=== PATIENT | male | born 1940 | race Caucasian/White ===

== ENCOUNTER 2017-03-28 23:47 | Inpatient (IN) | payer MEDICARE, BC ==
[~2017-03-28] VITALS: Ht 172.7 cm; Wt 72.6 kg
[2017-03-29] MEDS ORDERED: TEMA15CA (00:29)
[2017-03-29] MEDS ORDERED: DONE5TAB34 (00:29)
[2017-03-29] MEDS ORDERED: LORA1TAB (00:29)
[2017-03-29] MEDS ORDERED: LISI10TA5 (00:29)
[2017-03-29] MEDS ORDERED: VORT10TA (00:29)
[2017-03-29] MEDS ORDERED: OLAN10TA3 (00:29)
[2017-03-29] MEDS ORDERED: LAMO25TA (00:29)
[2017-03-29] MEDS ORDERED: SERT50TA12 (00:29)
[2017-03-29] MEDS ORDERED: RISP1TAB27 (00:29)
[2017-03-29] MEDS ORDERED: QUETIAPINE (00:29)
[2017-03-29] MEDS ORDERED: OMEP40CA37 (00:29)
[2017-03-29] MEDS ORDERED: ATOR40TA (00:29)
[2017-03-29] MEDS ORDERED: ACETAMINOPHEN 325 MG TABLET PO PRN (01:00)
[2017-03-29] MEDS ORDERED: MAG HYDROX/AL HYDROX/SIMETH 30 ML UDC PO PRN (01:00)
[2017-03-29 01:14] VITALS: BP 138/79
--- NOTE | 2017-03-29 01:43 | NUR ---
ADMISSION NOTES ADMITTED THIS 76Y/O MALE PATIENT DIRECT ADMIT FROM [facility] . PT IS ON 5150 HOLD FOR GD , PER HOLD PT. DEPREESED HPOELESS STATUS MY IS MOVING ON SHE CAN NO LONGER TAKE CARE OF ME , SI, AND HAS NOT BEEN EATING . UPON FACE TO FACE ASSESSMENT PATIENT IS A&O X-2,3, DEPESSED WITH FLAT AFFECT, DENIES SI AT THIS TIME, PT. IS POOR HISTORIAN, POOR INSIGHT ,POOR JUDGEMENT ,V/S WNL, NO ACUTE RESPIRATORY , HX OF DEPRESSION BIPOLAR DISORDER ,HTN, ALCOHOL ABUSE,GERD, HYPERLIPIDEMIA PA, SLEEP DIFFIULITIES, AWARE AND NOTIFIED OF THE ADMISSION, PT. REFUSED TO SIGNS ON ADMISSION PAPERS, SKIN ASSESSMENT DONE , SKIN INTACT . ENCOURAGED PT. VERBALIZED ANY FEELING CONCERN TO STAFF, ORIENT TO UNIT POLICY, WILL CONTINUE TO MONITOR FOR Q15 SAFETY AND BEHAVIOR.
[2017-03-29 08:00] VITALS: BP 137/75
[2017-03-29] MEDS: DONEPEZIL 5 MG TABLET PO SCH (08:42)
[2017-03-29] MEDS: ATORVASTATIN 40 MG TABLET PO SCH (08:42)
[2017-03-29] MEDS: LISINOPRIL (10MG) 10 MG TABLET PO SCH (08:43)
[2017-03-29 16:00] VITALS: BP 160/80
[2017-03-29 20:08] VITALS: BP 134/75
[2017-03-29] MEDS: OLANZAPINE 2.5 MG TABLET PO SCH (20:45)
[2017-03-30 07:04] LABS: ALANINE AMINOTRANSFERASE 34 U/L (12-78); ALBUMIN 3.7 g/dL (3.4-5.0); ALKALINE PHOSPHATASE 70 U/L (46-116); ASPARTATE AMINOTRANSFERASE 17 U/L (15-37); BILIRUBIN,TOTAL 0.7 mg/dL (0.2-1.0); CALCIUM, SERUM 9.5 mg/dL (8.5-10.1); CARBON DIOXIDE 26 mmol/L (21-32); CHLORIDE 104 mmol/L (98-107); CREATININE 0.9 mg/dL (0.6-1.3); GLUCOSE 81 mg/dL (74-106); POTASSIUM 4.2 mmol/L (3.5-5.1); SODIUM SERUM 138 mmol/L (136-145); TOTAL PROTEIN, SERUM 7.2 g/dL (6.4-8.2); UREA NITROGEN, BLOOD 20 mg/dL (7-18)
[2017-03-30 07:06] LABS: CHOLESTEROL 136 mg/dL (<200); HDL CHOLESTEROL 56 mg/dL (40-60); LDL 63 mg/dL (0-99); TRIGLYCERIDES 70 mg/dL (30-150)
[2017-03-30 07:14] LABS: BASOPHILS # (AUTO) 0.1 /CMM (0.0-0.2); BASOPHILS % (AUTO) 0.8 % (0.0-2.0); EOSINOPHILS # (AUTO) 0.1 /CMM (0.0-0.7); EOSINOPHILS % (AUTO) 1.1 % (0.0-6.0); HEMATOCRIT 43 % (39-51); HEMOGLOBIN 14.7 g/dL (13.5-17.5); LYMPHOCYTES # (AUTO) 3.1 /CMM (0.8-4.8); MEAN CORPUSCULAR HEMOGLOBIN 29 PG (26.0-33.0); MEAN CORPUSCULAR HGB CONC 34 g/dl (31.0-36.0); MEAN CORPUSCULAR VOLUME 85 fL (80-96); MONOCYTES # (AUTO) 0.7 /CMM (0.1-1.30); NEUTROPHILS # (AUTO) 7.6 /CMM (1.8-8.9); NEUTROPHILS % (AUTO) 65.1 % (43.0-81.0); PLATELET COUNT (AUTO) 297 /CMM (150-450); RDW COEFFICIENT OF VARIATION 12.9 (11.5-15.0); RED BLOOD CELL COUNT(AUTO) 5.04 MIL/uL (4.5-6.0); WHITE BLOOD COUNT (AUTO) 11.6 K/uL (4.3-11.0)
[2017-03-30 08:00] VITALS: BP 112/65
[2017-03-30] MEDS: OLANZAPINE 2.5 MG TABLET PO SCH ×2 (08:10→13:10)
[2017-03-30] MEDS: ATORVASTATIN 40 MG TABLET PO SCH (08:10)
[2017-03-30] MEDS: DONEPEZIL 5 MG TABLET PO SCH (08:10)
[2017-03-30] MEDS: LISINOPRIL (10MG) 10 MG TABLET PO SCH (08:12)
[2017-03-30 11:14] LABS: EOSINOPHILS % (MANUAL) 1 % (0-4); LYMPHOCYTES % (MANUAL) 31 % (16-48); MONOCYTES % (MANUAL) 6 % (0-11.0); NEUTROPHILS % (MANUAL) 62 (42-76)
[2017-03-30] MEDS: VENLAFAXINE XR 75 MG CAP.SR.24H PO SCH (13:10)
--- NOTE | 2017-03-30 14:46 | NUR ---
NME-MD-ASSBU: NOTIFIED DR. VICENTE ABOUT PT CALLING AND VERBALIZED SUICIDAL IDEATIONS. PLACED PT ON 1: SITTER. CHANGED ZYPREXA 2.5 MG TID TO ZYPREXA 2.5 MG PO BID, ZYPREXA 5 MG PO HS.
[2017-03-30 16:00] VITALS: BP 114/71
[2017-03-30] MEDS: BOOST PLUS FOOD-VANILLA 237 ML BOX PO SCH (16:40)
[2017-03-30 20:38] VITALS: BP 92/54
[2017-03-30] MEDS ORDERED: OLANZAPINE 5 MG TABLET PO SCH (22:00)
--- NOTE | 2017-03-30 22:00 | NUR ---
GPS RN NOTES: PATIENT BLOOD PRESSURE BP=87/53 P=68, NO SOB, NO ACUTE DISTRESS, BREATHING EVEN AND UNLABORED, DENIES PAIN AND DISCOMFORT. ZYPREXA HELD D/T LOW BP. ENCOURAGED THE PATIENT TO DRINK WATER, BOOST AND EAT SOME SNACKS. PATIENT AGREED AND WILL RECHECK AFTER 30 MINS. WILL CONTINUE TO MONITOR
--- NOTE | 2017-03-30 22:30 | NUR ---
GPS RN NOTE: RECHECKED BP=96/55 P=75 R=18 T=97.8, NO SOB, NO ACUTE DISTRESS, BREATHING EVEN AND UNLABORED, DENIES PAIN AND DISCOMFORT. WILL CONTINUE TO MONITOR
--- NOTE | 2017-03-30 23:20 | NUR ---
GPS RN NOTE: B/P = 105/58 P = 74 R = 20. NO SOB, NO ACUTE DISTRESS, BREATHING EVEN AND UNLABORED, DENIES PAIN AND DISCOMFORT, WILL CONTINUE TO MONITOR [id number] FOR SAFETY
--- NOTE | 2017-03-31 01:40 | NUR ---
GPS RN NOTE: PATIENT NB=055/81 P=82 R=18. NO SOB, NO ACUTE DISTRESS, BREATHING EVEN AND UNLABORED, DENIES PAIN AND DISCOMFORT. PATIENT STABLE. REFUSED SLEEPING PILLS. WILL CONTINUE TO MONITOR.
[2017-03-31] MEDS: MAGNESIUM HYDROXIDE 30 ML UDC PO PRN (01:44)
[2017-03-31 08:00] VITALS: BP 122/67
[2017-03-31] MEDS: BOOST PLUS FOOD-VANILLA 237 ML BOX PO SCH ×2 (10:08→17:14)
[2017-03-31] MEDS: LISINOPRIL (10MG) 10 MG TABLET PO SCH (10:09)
[2017-03-31] MEDS: VENLAFAXINE XR 75 MG CAP.SR.24H PO SCH (10:10)
[2017-03-31] MEDS: ATORVASTATIN 40 MG TABLET PO SCH (10:11)
[2017-03-31] MEDS: clonazePAM 0.5 MG TABLET PO PRN (10:11)
[2017-03-31] MEDS: OLANZAPINE 2.5 MG TABLET PO SCH ×3 (10:11→22:00)
--- NOTE | 2017-03-31 10:11 | NUR ---
RN NOTES ADMINISTERED KLONOPIN 0.5 MG PO PRN FOR ANXIETY, PER PATIENT REQUEST, V/S STABLE BP -122/67, P-73, CONTINUED MONITORING.
[2017-03-31] MEDS: DONEPEZIL 5 MG TABLET PO SCH (10:12)
[2017-03-31] MEDS ORDERED: LITHIUM CARBONATE 150 MG CAPSULE PO SCH (11:30)
--- NOTE | 2017-03-31 16:55 | NUR ---
Initial Discharge Plan: Pt resides at home, [address] [place] [address] with his , Elodia and step son, Jak. Pts # . Pt would like to return home upon discharge. FILIPE spoke to pts daughter Ivan Pike who expressed concerns about her father's mental health condition. Pts daughter would like to be involved in pts discharge planning. FILIPE will follow up with pt and family. SW will help formulate a safe and proper discharge. Addendum: 04/09/17 at 1153 by RUTH DENT Please note that Ivan's phone number is [phone].
--- NOTE | 2017-03-31 19:30 | NUR ---
RN NOTE; RECEIVED PT IN BED LAYING DOWN COMFORTABLY. DEPRESSED. BREATHING EVENLY. ON 1:1 OBSERVATION FOR SAFETY AND FALL RISK. NO BEHAVIORAL ISSUES NOTED AT THIS TIME. WILL CONT TO MONITOR .
[2017-03-31 20:00] VITALS: BP 85/48
[2017-03-31 20:36] VITALS: BP 85/48
--- NOTE | 2017-03-31 21:01 | NUR ---
SPOKE TO DR. SAMUELS AND RELAYED THE LOW BP OF 85/50 TO HIM. W/ A NEW ORDER TO HOLD THE BP MEDICATION . FLUID WAS OFFERED AND ENCOURAGED . LEGS ELEVATED. WILL CONT TO MONITOR.
--- NOTE | 2017-04-01 06:34 | NUR ---
RN NOTE; PT IN HIS ROOM SLEEPING. NO ACUTE EVENT DURING THE THE NIGHT. NO COMBATIVE BEHAVIOR. NO VERBALIZATION OF SUICIDE OD HOMICIDE. ON ONGOING OBSERVATION AND 1:1 SITTER FOR SAFETY AND FALL RISK. NEEDS ATTENDED . WILL CONT TO MONITOR AND WILL ENDORSE TO AM SHIFT FOR VIOLETA .
[2017-04-01] MEDS: DONEPEZIL 5 MG TABLET PO SCH (08:11)
[2017-04-01] MEDS: OLANZAPINE 2.5 MG TABLET PO SCH ×3 (08:11→21:42)
[2017-04-01] MEDS: ATORVASTATIN 40 MG TABLET PO SCH (08:11)
[2017-04-01] MEDS: VENLAFAXINE XR 75 MG CAP.SR.24H PO SCH (08:11)
[2017-04-01] MEDS: BOOST PLUS FOOD-VANILLA 237 ML BOX PO SCH ×2 (08:43→17:12)
[2017-04-01 08:52] VITALS: BP 104/62
[2017-04-01 20:00] VITALS: BP 101/60
--- NOTE | 2017-04-02 07:03 | NUR ---
GPS RN NOTES REMAINED PT. WITH 1:1 SITTER. PT. IS CALM AND COOPERATIVE AND FOLLOWS DIRECTIONS. NO ACUTE DISTRESS NOTED , WILL ENDORSE TO NEXT SHIFT FOR CONTINUITY OF CARE.
[2017-04-02] MEDS: BOOST PLUS FOOD-VANILLA 237 ML BOX PO SCH ×2 (08:15→17:33)
[2017-04-02] MEDS: OLANZAPINE 2.5 MG TABLET PO SCH ×4 (08:16→22:13)
[2017-04-02] MEDS: DONEPEZIL 5 MG TABLET PO SCH (08:16)
[2017-04-02] MEDS: VENLAFAXINE XR 75 MG CAP.SR.24H PO SCH (08:16)
[2017-04-02] MEDS: ATORVASTATIN 40 MG TABLET PO SCH (08:16)
[2017-04-02 08:23] VITALS: BP 115/65
[2017-04-02] MEDS: clonazePAM 0.5 MG TABLET PO PRN (16:11)
[2017-04-02 16:14] VITALS: BP 104/74
[2017-04-02 20:00] VITALS: BP 113/64
[2017-04-02] MEDS: TEMAZEPAM 7.5 MG CAPSULE PO PRN ×2 (22:11→23:32)
--- NOTE | 2017-04-02 22:40 | NUR ---
GPS RN NOTES: PATIENT REFUSED MEDICATIONS ZYPREXA 7.5MG AND RESTORIL 7.5MG. PATIENT SPIT OUT MEDICATIONS TO THE FLOOR. EXPLAINED RISKS AND BENEFITS. PATIENT STRONGLY REFUSED. PATIENT'S RIGHT RESPECTED. WILL CONTINUE TO MONITOR FOR SAFETY AND BEHAVIOR [id number].
[2017-04-03 08:28] VITALS: BP 129/57
[2017-04-03] MEDS: BOOST PLUS FOOD-VANILLA 237 ML BOX PO SCH ×2 (08:35→16:50)
[2017-04-03] MEDS: OLANZAPINE 2.5 MG TABLET PO SCH ×3 (09:04→21:24)
[2017-04-03] MEDS: ATORVASTATIN 40 MG TABLET PO SCH (09:04)
[2017-04-03] MEDS: VENLAFAXINE XR 75 MG CAP.SR.24H PO SCH (09:04)
[2017-04-03] MEDS: DONEPEZIL 5 MG TABLET PO SCH (09:04)
[2017-04-03 16:28] VITALS: BP 107/62
[2017-04-03] MEDS ORDERED: VENLAFAXINE XR 75 MG CAP.SR.24H PO ONE (17:30)
--- NOTE | 2017-04-03 17:54 | NUR ---
GPS/RN-NOTES PATIENT AWAKE,ALERT LAYING IN HIS BED CALM AND COOPERATIVE AT THIS TIME,NO ACUTE DISTRESS NOTED. ENDORSED TO INCOMING NURSE FOR CONTINUITY OF CARE.
[2017-04-03 20:00] VITALS: BP 104/59
[2017-04-03] MEDS: TEMAZEPAM 7.5 MG CAPSULE PO PRN (21:24)
[2017-04-04 08:00] VITALS: BP 130/70
[2017-04-04] MEDS: OLANZAPINE 2.5 MG TABLET PO SCH ×3 (08:15→21:28)
[2017-04-04] MEDS: DONEPEZIL 5 MG TABLET PO SCH (08:16)
[2017-04-04] MEDS: ATORVASTATIN 40 MG TABLET PO SCH (08:16)
[2017-04-04] MEDS: BOOST PLUS FOOD-VANILLA 237 ML BOX PO SCH ×2 (08:18→16:44)
[2017-04-04] MEDS ORDERED: VENLAFAXINE XR 75 MG CAP.SR.24H PO SCH (09:00)
[2017-04-04 15:43] VITALS: BP 102/64
[2017-04-04 20:22] VITALS: BP 113/50
[2017-04-05] MEDS: BOOST PLUS FOOD-VANILLA 237 ML BOX PO SCH ×2 (08:00→17:17)
[2017-04-05 08:21] VITALS: BP 113/63
[2017-04-05] MEDS: OLANZAPINE 2.5 MG TABLET PO SCH ×3 (09:00→21:57)
[2017-04-05] MEDS: VENLAFAXINE XR 75 MG CAP.SR.24H PO SCH (09:00)
[2017-04-05] MEDS: ATORVASTATIN 40 MG TABLET PO SCH (09:00)
[2017-04-05] MEDS: DONEPEZIL 5 MG TABLET PO SCH (09:00)
--- NOTE | 2017-04-05 09:00 | NUR ---
GPS/RN patient refused a.m. medication x 3, explained risks and benefits, will continue to encourage to comply with M.D. regimen.
--- NOTE | 2017-04-05 10:41 | NUR ---
FILIPE faxed inquiry to [facility] ; and [facility], [address] [place] [address], [place] [address]; and . FILIPE received a call back from [facility] stating they do not cover medicare/medical. [facility] was a recommended by pts daughter Ivan, who stated that her father had received services from the facility in the past. FILIPE also spoke to pts , Roseanne who would like for her to discharge to a Rehab facility and or Nursing, "So he can get help that I can't give him." FILIPE will continue to follow up to ensure pt is properly discharged.
[2017-04-05 16:00] VITALS: BP 118/66
[2017-04-05 20:00] VITALS: BP 122/60
--- NOTE | 2017-04-06 06:56 | NUR ---
GPS RN: PATIENT IN THE ROOM, AWAKE, IT WAS REPORTED BY DEMOGRAPHER THAT PATIENT HASN'T URINATED FOR THE WHOLE 12 HOURS. BEATER HEAD WENT TO PATIENT'S ROOM WITH CHARGE NURSE AND SPOKE TO PATIENT. PATIENT LOOKS SAD AND DEPRESSED. ENCOURAGED TO DRINK WATER AND BOOST BUT PATIENT REFUSED. TOLD PATIENT OF THE CONSEQUENCES BUT PATIENT KEPT ON REFUSING. WILL RELAY PATIENT'S BEHAVIOR TO DAY SHIFT NURSE.
[2017-04-06] MEDS: VENLAFAXINE XR 75 MG CAP.SR.24H PO SCH (08:06)
[2017-04-06] MEDS: DONEPEZIL 5 MG TABLET PO SCH (08:08)
[2017-04-06] MEDS: ATORVASTATIN 40 MG TABLET PO SCH (08:09)
[2017-04-06] MEDS: OLANZAPINE 2.5 MG TABLET PO SCH ×3 (08:10→21:13)
[2017-04-06 08:22] VITALS: BP 115/61
[2017-04-06] MEDS: BOOST PLUS FOOD-VANILLA 237 ML BOX PO SCH ×2 (08:54→16:19)
--- NOTE | 2017-04-06 11:01 | NUR ---
SW spoke to pts daughterIvan who provided SW with additional facilities to look into in the [place] area (i.e. [place] and [facility]). Sw informed pts daughter that [facility] was unable to accept her father's insurance coverage. Pts daughter stated that she and other family can pay for the services. SW advised pts daughter to contact facilities and discuss payment plans and inform SW with an update. SW will continue to follow up to ensure pt is properly discharged. .
[2017-04-06] MEDS: clonazePAM 0.5 MG TABLET PO PRN (12:21)
[2017-04-06 16:21] VITALS: BP 112/62
[2017-04-06 19:39] VITALS: BP 106/82
[2017-04-07] MEDS: DONEPEZIL 5 MG TABLET PO SCH (08:18)
[2017-04-07] MEDS: VENLAFAXINE XR 75 MG CAP.SR.24H PO SCH (08:18)
[2017-04-07] MEDS: ATORVASTATIN 40 MG TABLET PO SCH (08:18)
[2017-04-07] MEDS: OLANZAPINE 2.5 MG TABLET PO SCH ×2 (08:18→16:39)
[2017-04-07 08:28] VITALS: BP 115/61
[2017-04-07] MEDS: BOOST PLUS FOOD-VANILLA 237 ML BOX PO SCH ×2 (08:37→16:35)
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
[2017-04-07 15:52] VITALS: BP 102/62
--- NOTE | 2017-04-07 16:16 | NUR ---
RN-CO: Dr Junior Almonte regarding patient's poor PO intake averaging from 25%-15%. Dr Pacheco ordered swallow evaluation, CBC,BMP, Mg, Phosphorous. Dr Sepulveda covering for Dr Roman was also notified.
[2017-04-07] MEDS ORDERED: OLANZAPINE 10 MG TABLET PO SCH (17:30)
[2017-04-07 18:13] LABS: BASOPHILS % (AUTO) 0.1 % (0.0-2.0); EOSINOPHILS # (AUTO) 0.1 /CMM (0.0-0.7); EOSINOPHILS % (AUTO) 1.1 % (0.0-6.0); HEMATOCRIT 40 % (39-51); HEMOGLOBIN 13.1 g/dL (13.5-17.5); LYMPHOCYTES # (AUTO) 2.2 /CMM (0.8-4.8); LYMPHOCYTES % (AUTO) 20.5 % (20.0-44.0); MEAN CORPUSCULAR HEMOGLOBIN 29 PG (26.0-33.0); MEAN CORPUSCULAR HGB CONC 33 g/dl (31.0-36.0); MEAN CORPUSCULAR VOLUME 86 fL (80-96); MONOCYTES # (AUTO) 0.7 /CMM (0.1-1.30); MONOCYTES % (AUTO) 6.7 % (2.0-12.0); NEUTROPHILS # (AUTO) 7.6 /CMM (1.8-8.9); NEUTROPHILS % (AUTO) 71.6 % (43.0-81.0); PLATELET COUNT (AUTO) 262 /CMM (150-450); RDW COEFFICIENT OF VARIATION 14.5 (11.5-15.0); RED BLOOD CELL COUNT(AUTO) 4.57 MIL/uL (4.5-6.0); WHITE BLOOD COUNT (AUTO) 10.6 K/uL (4.3-11.0)
[2017-04-07 18:22] LABS: MAGNESIUM 1.9 mg/dL (1.8-2.4); PHOSPHORUS 3.5 mg/dL (2.5-4.9)
[2017-04-07] MEDS: OLANZAPINE 10 MG TABLET PO SCH (21:04)
[2017-04-08 06:50] LABS: CALCIUM, SERUM 9.1 mg/dL (8.5-10.1); CARBON DIOXIDE 27 mmol/L (21-32); CHLORIDE 103 mmol/L (98-107); CREATININE 0.9 mg/dL (0.6-1.3); GLUCOSE 111 mg/dL (74-106); POTASSIUM 3.5 mmol/L (3.5-5.1); SODIUM SERUM 139 mmol/L (136-145); UREA NITROGEN, BLOOD 20 mg/dL (7-18)
[2017-04-08] MEDS: BOOST PLUS FOOD-VANILLA 237 ML BOX PO SCH ×2 (08:00→17:00)
--- NOTE | 2017-04-08 08:42 | NUR ---
DR. ANDERSEN NOTIFIED THAT PT. REFUSED TO EAT BREAKFAST AND REFUSED TO TAKE BOOST AND REFUSED PO MEDS AND PT. TOLD TO THE PRIMARY NURSE THAT IF WE WILL NOT DISCHARGE HIM TODAY HE WILL HURT HIMSELF HERE. DR. ANDERSEN ORDERED NOT TO DISCHARGE AND PUT PT. ON 1:1.
[2017-04-08] MEDS: ATORVASTATIN 40 MG TABLET PO SCH (09:00)
[2017-04-08] MEDS: VENLAFAXINE XR 75 MG CAP.SR.24H PO SCH (09:00)
[2017-04-08] MEDS: DONEPEZIL 5 MG TABLET PO SCH (09:00)
--- NOTE | 2017-04-08 09:00 | NUR ---
PATIENT REFUSED ALL A.M. MEDIATION, REFUSED BREAKFAST AND REFUSED BOOST Addendum: 04/08/17 at 1331 by MARTIR DOMINGUEZ RN 0900: PATIENT ADAMANTLY REFUSED ALL A.M. MEDICATION X 3, EXPLAINED RISKS AND BENEFITS, REFUSED BREAKFAST AND REFUSED BOOST. ENCOURAGED TO COMPLY WITH MD REGIMEN AND ENCOURAGED FLUIDS AND TO CONSUME ADEQUATE AMOUNT AT MEALTIME. PATIENT STATED " IF IM NOT DISCHARGED FROM HERE TODAY, IM GOING TO HURT MYSELF". ENCOURAGED TO VERBALIZE FEELINGS AND CONCERNS, CHARGE NURSE AWARE OF PATIENT VERBALIZING SI, DR ANDERSEN NOTIFIED. WILL CONTINUE TO MONITOR Q 15 MIN FOR SAFETY AN D BEHAVIOR.
[2017-04-08 09:28] VITALS: BP 111/61
--- NOTE | 2017-04-08 12:00 | NUR ---
GPS/RN PATIENT REPORTED TO COKE OVEN MASON THAT HE WOULD HURT HIMSELF WHEN HE GOES HOME. NO SPECIFIC PLAN STATED, REPORTED TO CHARGE NURSE, PATIENT ENCOURAGED TO VERBALIZE FEELINGS AND CONCERNS, 1:1 SITTER AT SIDE, WILL CONTINUE TO MONITOR Q 15 M,IN FOR SAFETY AND BEHAVIOR.
[2017-04-08 16:02] VITALS: BP 107/63
--- NOTE | 2017-04-08 16:07 | NUR ---
Discharge Planning: FILIPE spoke with pt's daughter, Ivan Pike . Ivan stated that she found a detox program for her father and is willing to pay if he is to attend. Ivan stated that her father going home would be the "last resort." Ivan stated that the communication should be primarily through her and not Therese Wilson, pt's step-daughter. Ivan provided the contact information for Moon Serrano from [facility], . Addendum: 04/09/17 at 1153 by RUTH DENT Please note that Ivan's phone number is [phone]
--- NOTE | 2017-04-08 16:08 | NUR ---
Discharge Planning: FILIPE called and spoke with Moon Serrano from [facility], . Moon stated that she would like to do a phone interview with patient on Wednesday at 11am and then a [id number] interview on Wednesday at noon. Moon stated that she would email a form that would need to be filled out by doctor. FILIPE provided her email address. Moon also provided the fax number [phone]. FILIPE to fax over inquiry packet tomorrow morning.
[2017-04-08 20:00] VITALS: BP 107/62
[2017-04-08] MEDS: clonazePAM 0.5 MG TABLET PO PRN (20:39)
[2017-04-08] MEDS: OLANZAPINE 10 MG TABLET PO SCH (21:58)
[2017-04-09 08:00] VITALS: BP 99/65
[2017-04-09] MEDS: BOOST PLUS FOOD-VANILLA 237 ML BOX PO SCH ×2 (08:30→16:49)
[2017-04-09] MEDS: VENLAFAXINE XR 75 MG CAP.SR.24H PO SCH (08:30)
[2017-04-09] MEDS: ATORVASTATIN 40 MG TABLET PO SCH (08:30)
[2017-04-09] MEDS: DONEPEZIL 5 MG TABLET PO SCH (08:30)
[2017-04-09 09:32] LABS: APPEARANCE,URINE CLOUDY (CLEAR); BILIRUBIN,URINE NEGATIVE (NEGATIVE); BLOOD, URINE NEGATIVE Ery/uL (NEGATIVE); COLOR,URINE YELLOW (YELLOW); KETONES,URINE NEGATIVE (NEGATIVE); LEUKOCYTE ESTERASE ,URINE NEGATIVE (NEGATIVE); NITRITE, URINE NEGATIVE (NEGATIVE); PROTEIN,URINE NEGATIVE (NEGATIVE); UGLUCOSE NEGATIVE (NEGATIVE); UROBILINOGEN,URINE 0.2 EU/dL (0.2)
[2017-04-09 09:37] LABS: RBC,URINE NONE SEEN /HPF (0-2); WBC,URINE 0-2 /HPF (0-3)
[2017-04-09 09:38] LABS: BACTERIA,URINE Moderate /HPF (None Seen); MUCUS,URINE Few /LPF (None Seen); SQUAMOUS EPITHELIAL CELL,UR Few /HPF (None Seen)
--- NOTE | 2017-04-09 11:20 | NUR ---
Discharge Planning: SW called Moon Serrano from [facility], in order to facilitate a phone interview with patient regarding acceptance into a rehab program. SW to follow up with Moon and patient after the interview.
--- NOTE | 2017-04-09 11:21 | NUR ---
SW entered pts erlin psych assessment on this date, however assessment was completed on 03/31/2017 (within the 3 dys). FILIPE was unaware that the assessment did not save on [employer]. FILIPE was made aware, yesterday by FILIPE Fisher. FILIPE verified to ensure pts assessment saved. Pts assessment is recorded on [employer].
--- NOTE | 2017-04-09 11:27 | NUR ---
Discharge Planning: FILIPE received a physician's report form from Moon Serrano from [facility], . FILIPE made pt's MD [Dr. Pacheco] and charge nurse [Gina] aware of this and flagged it in patient's chart. Addendum: 04/09/17 at 1152 by RUTH DENT Please note that Dr. Pacheco's signature was obtained on this date. FILIPE to fax over report and progress notes to Moon, clinical director at [facility],
[2017-04-09 16:00] VITALS: BP 94/63
--- NOTE | 2017-04-09 16:19 | NUR ---
Discharge Planning: FILIPE obtained a release of information from patient and faxed the physician's report and medical history and physical to Moon Serrano, linux unix administrator, from [facility], / fax number [phone]. FILIPE also confirmed with Moon that she will be assessing the patient [id number] on Wednesday at noon. Addendum: 04/09/17 at 1639 by RUTH DENT Please note fax number is [phone]
[2017-04-09 20:00] VITALS: BP 103/56
[2017-04-09] MEDS: TEMAZEPAM 7.5 MG CAPSULE PO PRN (21:49)
[2017-04-09] MEDS: OLANZAPINE 10 MG TABLET PO SCH (21:49)
[2017-04-10 08:00] VITALS: BP 118/62
[2017-04-10] MEDS: BOOST PLUS FOOD-VANILLA 237 ML BOX PO SCH ×2 (08:45→16:57)
[2017-04-10] MEDS: DONEPEZIL 5 MG TABLET PO SCH (08:46)
[2017-04-10] MEDS: VENLAFAXINE XR 75 MG CAP.SR.24H PO SCH (08:47)
[2017-04-10] MEDS: ATORVASTATIN 40 MG TABLET PO SCH (08:48)
[2017-04-10] MEDS: clonazePAM 0.5 MG TABLET PO PRN ×2 (14:29→20:22)
[2017-04-10 15:37] VITALS: BP 107/63
--- NOTE | 2017-04-10 17:06 | NUR ---
GPS RN NOTES: PATIENT IN BED RESTING, RESPONSIVE. PER PRIMARY HEALTH CARE NURSE, PATIENT URINATED X1 IN THE WHOLE 12 HOUR SHIFT, WASN'T ABLE TO COLLECT URINE SAMPLE.
--- NOTE | 2017-04-10 18:00 | NUR ---
GPS RN NOTES: PATIENT IN BED RESTING. PATIENT ATE 75% DINNER AND DRANK BOOST. WILL CONTINUE TO MONITOR EVERY 15 MINS. Addendum: 04/10/17 at 1849 by MEMO LEE 1:1 SITTER AT BEDSIDE
[2017-04-10 20:00] VITALS: BP 102/60
--- NOTE | 2017-04-10 20:23 | NUR ---
GPS/RN NOTE: PATIENT IS AGITATED AT THIS TIME. KLONOPIN 0.5 MG TAB PO GIVEN. WILL CONTINUE TO MONITOR FOR BEHAVIOR.
[2017-04-10] MEDS: OLANZAPINE 10 MG TABLET PO SCH (22:00)
[2017-04-11] MEDS: DONEPEZIL 5 MG TABLET PO SCH (08:08)
[2017-04-11] MEDS: ATORVASTATIN 40 MG TABLET PO SCH (08:08)
[2017-04-11] MEDS: VENLAFAXINE XR 75 MG CAP.SR.24H PO SCH (08:09)
[2017-04-11] MEDS: BOOST PLUS FOOD-VANILLA 237 ML BOX PO SCH ×2 (08:14→16:48)
[2017-04-11 08:19] VITALS: BP 100/54
[2017-04-11 15:58] VITALS: BP 94/58
[2017-04-11 20:12] VITALS: BP 96/56
[2017-04-11] MEDS: OLANZAPINE 10 MG TABLET PO SCH (21:41)
[2017-04-12 08:00] VITALS: BP 111/60
[2017-04-12] MEDS: ATORVASTATIN 40 MG TABLET PO SCH (08:05)
[2017-04-12] MEDS: VENLAFAXINE XR 75 MG CAP.SR.24H PO SCH (08:05)
[2017-04-12] MEDS: DONEPEZIL 5 MG TABLET PO SCH (08:06)
[2017-04-12] MEDS: BOOST PLUS FOOD-VANILLA 237 ML BOX PO SCH ×2 (08:11→17:03)
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
[2017-04-12] MEDS: MEGESTROL ACETATE SUSP 400 MG/10 ML UDC PO SCH ×2 (11:19→16:56)
--- NOTE | 2017-04-12 12:17 | NUR ---
Discharge Planning: SW received a call from Moon Serrano, from [facility] who stated that she is on her way from [place] to assess the patient and should be at [place] around 2pm. Addendum: 04/12/17 at 1220 by RUTH DENT Please note that pt's daughter, Ivan [phone] was informed of the assessment.
--- NOTE | 2017-04-12 14:53 | NUR ---
EKG-BG-PVARO: NOTIFIED DR. ENNIS ABOUT URINE CULTURE RESULTS. PENDING RETURN PHONE CALL.
[2017-04-12 16:00] VITALS: BP 100/62
--- NOTE | 2017-04-12 16:17 | NUR ---
Discharge Planning: Patient was assessed by Moon Serrano, from [facility] inpatient rehab program. Moon informed SW that patient will have a bed available at her facility. SW to follow up and arrange transportation.
--- NOTE | 2017-04-12 16:22 | NUR ---
Family Update: SW spoke with pt's daughter, Ivan [phone] and informed her that she will be contacted by Moon Serrano, from [facility] inpatient rehab program to sort out the final details.
[2017-04-12 20:56] VITALS: BP 106/65
[2017-04-12] MEDS: clonazePAM 0.5 MG TABLET PO PRN (21:04)
[2017-04-12] MEDS: OLANZAPINE 10 MG TABLET PO SCH (21:38)
[2017-04-13 08:00] VITALS: BP 128/62
[2017-04-13] MEDS: BOOST PLUS FOOD-VANILLA 237 ML BOX PO SCH ×2 (08:41→17:03)
[2017-04-13] MEDS: VENLAFAXINE XR 75 MG CAP.SR.24H PO SCH (08:42)
[2017-04-13] MEDS: MEGESTROL ACETATE SUSP 400 MG/10 ML UDC PO SCH ×2 (08:42→17:03)
[2017-04-13] MEDS: ATORVASTATIN 40 MG TABLET PO SCH (08:42)
[2017-04-13] MEDS: DONEPEZIL 5 MG TABLET PO SCH (08:42)
--- NOTE | 2017-04-13 11:42 | NUR ---
Discharge Planning: FILIPE spoke to Dr. Akins, to provide him with an update regarding pts assessment evaluation with [facility] . FILIPE informed Dr. Akins pt had been accepted to the inpatient rehab facility for tomorrow. Dr. Akins is in agreement with pts discharge to the facility. FILIPE will continue to follow up to ensure pt is properly and safely discharged.
--- NOTE | 2017-04-13 11:55 | NUR ---
Discharge Planning: FILIPE spoke to Moon Serrano, Gang Miner from [facility] to coordinate transportation services for pt as he will be discharged to their facility tomorrow. Per Ms. Serrano the facility is not able to provide pt with transportation to their facility. FILIPE will follow up with pts daughter, Ivan to arrange for transportation for pt to the facility, for tomorrow's discharge. FILIPE will follow up to ensure pt is properly discharged.
--- NOTE | 2017-04-13 11:59 | NUR ---
Discharge planning: SW spoke to pts daughterIvan to arrange for transportation upon pts discharge. Per pts daughterIvan she will make arrangements for her father's transportation and will call back today with the information. SW will continue to follow up to ensure pt is properly discharged.
[2017-04-13 16:00] VITALS: BP 91/59
--- NOTE | 2017-04-13 17:35 | NUR ---
GPS/RN-NOTES DR. ANDERSEN EXPLAINED VOLUNTARY STATUS TO THE PATIENT WITH UNDERSTANDING AND SIGN VOLUNTARY. PATIENT ALERT ORIENTED X4 ABLE TO MAKE DECISION. PATIENT DENIES SI/HI,DENIES VISUAL /AUDITORY HALLUCINATIONS AT THIS TIME.
[2017-04-13] MEDS: MAGNESIUM HYDROXIDE 30 ML UDC PO PRN (19:53)
[2017-04-13 20:01] VITALS: BP 99/53
--- NOTE | 2017-04-13 20:15 | NUR ---
GPS RN NOTES: PATIENT COMPLAINED OF CONSTIPATION. FURTHER ASSESSMENT MADE, ABDOMEN NON-DISTENDED, BOWEL SOUNDS PRESENT IN ALL 4 QUADRANTS. NO NAUSEA AND VOMITING NOTED. ENCOURAGED PATIENT TO INCREASE FLUID INTAKE TOLERATED. MOM 30ML PO GIVEN PRN ORDER AND INEFFECTIVE. CALLED DR. GOMES NOTIFIED FINDING ASSESSMENT WITH NEW ORDER OF DULCOLAX 10MG RECTALLY X 1 NOW, NOTED AND CARRIED OUT. WILL CONTINUE TO MONITOR.
[2017-04-13] MEDS ORDERED: BISACODYL SUPP (10 MG) 10 MG/SUPP.RECT SUPP.RECT RC ONE (20:30)
[2017-04-13] MEDS: NITROFURANTOIN/NITROFURAN MAC 100 MG CAPSULE PO SCH (21:15)
[2017-04-13] MEDS: OLANZAPINE 10 MG TABLET PO SCH (21:15)
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
[2017-04-14 08:00] VITALS: BP 107/56
[2017-04-14] MEDS: BOOST PLUS FOOD-VANILLA 237 ML BOX PO SCH (08:00)
--- NOTE | 2017-04-14 08:34 | NUR ---
Discharge Note: Patient will be discharged to [facility], [address] [address] via private transportation arranged by Ivan, pts daughter. Pt will be picked up at 11am by Rosanne Payne from [facility]. Pt, daughter and have been notified and are in agreement. Pt will be see by Psychiatrist: Aileen Flower, , [address] [address] who works at the facility. An appointment wiil be scheduled once pt has been admitted. Pt will continue to see his Contact Center Engineer: Dr. Jason Arellano, , [address] [place] [address] for medical services.
[2017-04-14] MEDS: NITROFURANTOIN/NITROFURAN MAC 100 MG CAPSULE PO SCH (08:36)
[2017-04-14] MEDS: MEGESTROL ACETATE SUSP 400 MG/10 ML UDC PO SCH ×2 (08:36→09:00)
[2017-04-14] MEDS: VENLAFAXINE XR 75 MG CAP.SR.24H PO SCH (08:36)
[2017-04-14] MEDS: ATORVASTATIN 40 MG TABLET PO SCH (08:37)
[2017-04-14] MEDS: DONEPEZIL 5 MG TABLET PO SCH (08:37)
--- NOTE | 2017-04-14 10:40 | NUR ---
RN NOTE:PATIENT REFUSED DISCHARGE PHOTOS .
--- NOTE | 2017-04-14 10:40 | NUR ---
AIR DEFENSE ARTILLERY OFFICER NOTE :PATIENT ALERT ,VS STABLE ,DENIES SUICIDAL IDEATION ,DENIES HOMICIDAL IDEATION ,DENIES VISUAL AUDITORY HALLUCINATION .ALL BELONGINGS RETURNED TO PATIENT .NO C/O PAIN . AND DR. ANDERSEN NOTIFIED OF DISCHARGE WITH DISCHARGE ORDERS .PATIENT DISCHARGE BY [facility] .
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
== END 2017-04-14 10:40 | DRG 885 ==
LOC: GPS 23:47
PROVIDERS: ADMIT Psychiatry & Neurology Psychiatry; ATTEND Internal Medicine
DX: F31.9 Bipolar disorder, unspecified (principal); B95.2 Enterococcus as the cause of diseases classified elsewhere; N39.0 Urinary tract infection, site not specified; F03.90 Unspecified dementia, unspecified severity, without behavioral disturbance, psychotic disturbance, mood disturbance, and anxiety; R13.10 Dysphagia, unspecified; F23 Brief psychotic disorder; E78.5 Hyperlipidemia, unspecified; F41.9 Anxiety disorder, unspecified; I10 Essential (primary) hypertension; Z73.6 Limitation of activities due to disability
CPT/HCPCS: 36415; 70450-TC; 80048-TC; 80053-TC; 80061-TC; 81000-TC; 83735-TC; 84100-TC; 85025-TC; 87086-TC; 87186-TC; 92611-TC